=== PATIENT | male | born 1960 | race Caucasian/White ===

== ENCOUNTER 2018-11-20 08:34 | Outpatient (CLI) | payer OTHER ==
--- NOTE | 2018-11-20 11:01 | RAD ---
TWO VIEWS OF THE CHEST: DATE: 11/20/2018. COMPARISON: 10/24/2016. HISTORY: Dyspnea. FINDINGS: Single-lead AICD present, inserted via left subclavian approach. No pneumothorax, pleural fluid, foc al consolidation, or alveolar edema. IMPRESSION: No acute findings. POS: OFF
== END 2018-11-20 08:35 | disposition home or self-care (01) ==
LOC: RAD 08:34
PROVIDERS: ATTEND Internal Medicine Pulmonary Disease
DX: R06.00 Dyspnea, unspecified (principal)
CPT/HCPCS: 71046

== ENCOUNTER 2019-07-23 06:34 | Outpatient (CLI) | payer OTHER ==
--- NOTE | 2019-07-23 08:47 | RAD ---
EXAM: Chest PA and lateral: HISTORY: Preoperative exam. COMPARISON: 11/20/2018 FINDINGS: Left-sided single lead defibrillator with lead positioned over the expected region of the right ventr icle. Heart: Normal cardiac silhouette Aorta: Unremarkable Pulmonary vessels: Normal Costophrenic angles: Costophrenic angles are clear. Lungs: No consolidation or masses. Pneumothorax: No pneumothorax Osseous structures: No osseous abnormalities IMPRESSION: No acute cardiopulmonary process.
[2019-07-23 11:02] LABS: #Basophils 0.1 thou/uL (0.0-0.2); #Eosinphils 0.7 thou/uL (0.0-0.7); #Lymphocytes 3.1 thou/uL (1.20-3.40); #Monocytes 0.7 thou/uL (0.11-0.59); #Neutrophils 5.6 thou/uL (1.40-6.50); %Basophils 0.9 % (0.0-1.0); %Eosinophils 6.6 % (0.0-10.0); %Lymphocytes 30.3 % (21.0-51.0); %Monocytes 7.3 % (0.0-10.0); Hemoglobin 15.8 g/dL (14.0-18.0); Mean Corpuscular HGB CONC 33.2 g/dL (32.0-36.0); Mean Corpuscular Hemoglobin 30.3 pg (27.0-31.0); Mean Corpuscular Volume 91.1 fL (78.0-98.0); Mean Platelet Volume 9.6 fL (7.4-10.4); Platelet Count 209 thou/uL (130-400); RBC Distribution Width 12.3 % (11.5-14.5); Red Blood Cell (RBC) Count 5.24 mill/uL (4.70-6.10); White Blood Cell (WBC) Count 10.2 thou/uL (4.8-10.8)
[2019-07-23 11:08] LABS: INR-International Normal Ratio 0.8; Prothrombin Time 11.4 SEC (12.0-14.7)
[2019-07-23 11:09] LABS: PTT 30.7 SEC (22.9-36.1)
[2019-07-23 11:29] LABS: ALT (SGPT) 11 U/L (8-55); AST (SGOT) 12 U/L (5-34); Albumin 4.4 g/dL (3.5-5.0); Alkaline Phosphatase 75 U/L (40-110); Anion Gap 15 mmol/L (10-20); BUN (Urea Nitrogen) 13 mg/dL (8.4-25.7); Bilirubin, Total 0.5 mg/dL (0.2-1.2); Calc. Creatinine Clearance 0 mL/min (70-130); Calcium 9.8 mg/dL (7.8-10.44); Carbon Dioxide 24 mmol/L (22-29); Chloride 101 mmol/L (98-107); Estimated GFR-MDRD 64; Globulin 2.9 g/dL (2.4-3.5); Glucose 242 mg/dL (70-105); Potassium 4.6 mmol/L (3.5-5.1); Protein, Total 7.3 g/dL (6.0-8.3); Sodium 135 mmol/L (136-145)
[2019-07-23 17:20] LABS: SARS-CoV-2 MS2 Positive; SARS-CoV-2 N Gene Negative; SARS-CoV-2 S Gene Negative; SARS-CoV-2 orf1ab Negative
--- NOTE | 2019-07-28 15:51 | EKG ---
Test Reason : Blood Pressure : / mmHG Vent. Rate : 094 BPM Atrial Rate : 094 BPM P-R Int : 170 ms QRS Dur : 082 ms QT Int : 350 ms P-R-T Axes : 060 -05 -15 degrees QTc Int : 437 ms Normal sinus rhythm Nonspecific T wave abnormality Abnormal ECG When compared with ECG of 01-MAR-2013 11:46, No significant change was found Confirmed by GERONIMO GOMEZ (2) on 07/28/2019 3:50:40 PM Referred By: [email or web address] Confirmed By:GERONIMO GOMEZ
== END 2019-07-23 06:35 | disposition home or self-care (01) ==
LOC: LABBT 06:34
PROVIDERS: ATTEND Internal Medicine Cardiovascular Disease
DX: Z01.818 Encounter for other preprocedural examination (principal); Z11.59 Encounter for screening for other viral diseases; R94.39 Abnormal result of other cardiovascular function study
CPT/HCPCS: 71046; 80053; 85025; 85610; 85730; 87635; 93005; 93010; U0003

== ENCOUNTER 2019-07-24 05:48 | Day surgery (SDC) | payer OTHER ==
[2019-07-23 09:11] VITALS: BMI 39.5
[2019-07-24] MEDS ORDERED: Nitroglycerin 100MG/250ML BOT 250 ML ONE (07:25)
[2019-07-24] MEDS ORDERED: Heparin 10,000 UNITS/1 ML VIAL ONE (07:25)
[2019-07-24] MEDS ORDERED: Verapamil 5 MG/2 ML VIAL ONE (07:25)
[2019-07-24] MEDS ORDERED: Iopamidol 370 76% 100 ML VIAL ONE (10:31)
--- NOTE | 2019-07-25 07:49 | DIS ---
DATE OF ADMISSION: 07/24/2019 DATE OF DISCHARGE: 07/24/2019 INDICATION FOR PROCEDURE: A 59-year-old patient with history of known coronary artery disease and cardiomyopathy, underwent stress testing due to continued shortness of breath or worsening of shortness of breath, who was found to have abnormal stress test with some anterior wall abnormalities. He was advised to undergo cardiac catheterization to evaluate the coronary arteries and also to evaluate the left ventricular systolic function. ADMITTING DIAGNOSES: Include cardiomyopathy, known coronary artery disease, diabetes, hypertension, dyslipidemia, and obesity. DISCHARGE DIAGNOSES: Include cardiomyopathy, known coronary artery disease, diabetes, hypertension, dyslipidemia, and obesity. PROCEDURES IN THE HOSPITAL: Included cardiac catheterization, left ventriculogram, and coronary arteriography using a right radial artery approach. DISCHARGE MEDICATIONS: Include, 1. ProAir HFA aerosol solution two puffs q.6 hours as needed. 2. Albuterol nebulizer solution every 8 hours as needed, that is 2.5 mg per 3 mL. 3. Multivitamins daily. 4. Metformin 1000 mg extended release two tablets twice a day. 5. Lipitor 20 mg daily. 6. Coreg 6.25 mg b.i.d. 7. Aspirin 81 mg a day. 8. Glipizide 5 mg daily. 9. Lasix 40 mg once a day. 10. Entresto 49/51 tablets b.i.d. In the chart, it is listed as once a day, but it should be twice a day. FOLLOWUP: He is to follow up with me in the office in the next 2 to 4 weeks. HOSPITAL COURSE: This very pleasant 59-year-old gentleman, who has a long history of cardiomyopathy. He has undergone AICD implant. He has had a history of mild coronary artery disease. He continued to have shortness of breath. Stress test showed some abnormalities in the anterior wall with a defect, and he was advised to undergo cardiac catheterization to evaluate the coronary artery status. He was taken to the cardiac [facility], where he underwent the procedure today. He was found to have the following, left main was normal. Left anterior descending artery had 60% stenosis in the mid and distal area, the more distally with a 50% stenosis. He also has some ectasia in the left anterior descending artery noted in the mid section. The diagonal branch was approximately 50% to 60% stenosed. The left circumflex had 50% proximal stenosis or plaque formation and then the distal after takeoff after the first obtuse marginal branch had another 50% stenosis in the distal circumflex. The right coronary artery is a large dominant vessel with ectasia, but no flow-limiting disease or stenosis was noted. It was noted that the patient did have some sluggish flow in all coronary arteries. The left ventricular systolic function showed ejection fraction of 30% to 35%. At this time, we will continue medical management of the patient. I have advised him to try to lose weight and continue walking on a daily basis. We will continue his medication. We will adjust as needed. We will continue to follow the patient. If he remains stable, he will be discharged to home within the next 2 to 3 hours. I will see him back in the office in 2 to 4 weeks. Job ID: [id number]
== END 2019-07-24 10:07 | disposition home or self-care (01) ==
LOC: CCL 05:48
PROVIDERS: ATTEND Internal Medicine Cardiovascular Disease
PROC: 4A023N7 Measurement of Cardiac Sampling and Pressure, Left Heart, Percutaneous Approach (ICD-10-PCS; principal; 2019-07-24)
PROC: B2111ZZ Fluoroscopy of Multiple Coronary Arteries using Low Osmolar Contrast (ICD-10-PCS; principal; 2019-07-24)
DX: I25.10 Atherosclerotic heart disease of native coronary artery without angina pectoris (principal); I42.9 Cardiomyopathy, unspecified; I11.0 Hypertensive heart disease with heart failure; I50.22 Chronic systolic (congestive) heart failure; E11.9 Type 2 diabetes mellitus without complications; E78.00 Pure hypercholesterolemia, unspecified; E78.5 Hyperlipidemia, unspecified; E66.9 Obesity, unspecified; J44.9 Chronic obstructive pulmonary disease, unspecified; F17.210 Nicotine dependence, cigarettes, uncomplicated; Z79.84 Long term (current) use of oral hypoglycemic drugs; Z79.899 Other long term (current) drug therapy; Z68.39 Body mass index [BMI] 39.0-39.9, adult; Z95.810 Presence of automatic (implantable) cardiac defibrillator
CPT/HCPCS: 93458; C1769; J1644; Q9967

== ENCOUNTER 2022-01-12 10:53 | Outpatient (CLI) | payer OTHER ==
[2022-01-12 11:37] LABS: Hemoglobin 16.9 g/dL (13.5-17.5); Mean Corpuscular HGB CONC 34.2 g/dL (32.0-36.0); Mean Corpuscular Hemoglobin 30.3 pg (27.0-33.0); Mean Corpuscular Volume 88.5 fl (81.2-95.1); Platelet Count 273 10x3/uL (150-450); RBC Distribution Width 13.2 % (11.5-14.5); Red Blood Cell (RBC) Count 5.58 10x6/uL (4.32-5.72); White Blood Cell (WBC) Count 12.1 10x3/uL (3.5-10.5)
[2022-01-12 11:54] LABS: INR-International Normal Ratio 0.9; PTT 28.2 sec (22.0-33.0); Prothrombin Time 10.3 sec (9.5-12.1)
[2022-01-12 12:07] LABS: ALT (SGPT) 8 U/L (8-55); AST (SGOT) 12 U/L (5-34); Albumin 4.7 g/dL (3.4-4.8); Alkaline Phosphatase 72 U/L (40-110); Anion Gap 18 mmol/L (10-20); BUN (Urea Nitrogen) 26 mg/dL (8.4-25.7); Bilirubin, Direct 0.2 mg/dL (0.1-0.3); Bilirubin, Total 0.5 mg/dL (0.2-1.2); Calc. Creatinine Clearance 0 mL/min (70-130); Calcium 10.2 mg/dL (7.8-10.44); Carbon Dioxide 22 mmol/L (23-31); Chloride 104 mmol/L (98-107); Estimated GFR 62; Glucose 167 mg/dL (80-115); Potassium 5.5 mmol/L (3.5-5.1); Protein, Total 7.7 g/dL (5.8-8.1); Sodium 138 mmol/L (136-145)
== END 2022-01-12 10:54 | disposition home or self-care (01) ==
LOC: LABBT 10:53
PROVIDERS: ATTEND Internal Medicine Cardiovascular Disease
DX: Z01.818 Encounter for other preprocedural examination (principal); I50.9 Heart failure, unspecified; I42.0 Dilated cardiomyopathy; I42.8 Other cardiomyopathies
CPT/HCPCS: 71046; 80048; 80076; 85027; 85610; 85730; 93005; 93010

== ENCOUNTER 2022-01-17 08:40 | Day surgery (SDC) | payer OTHER ==
[2022-01-13 15:00] VITALS: BMI 39.5
[2022-01-17] MEDS ORDERED: Gentamicin 80 MG/50 ML BAG ONE ×2 (13:01→13:02)
[2022-01-17] MEDS ORDERED: Gentamicin 80 MG/2 ML VIAL ONE ×2 (13:01→13:02)
[2022-01-17] MEDS ORDERED: Lidocaine 1% (PF) 30 ML VIAL ONE (13:01)
[2022-01-17] MEDS ORDERED: ceFAZolin 2 GM/Dextrose 50 ML IVPB ONE (13:01)
[2022-01-17] MEDS ORDERED: CEFAZOLIN 2 GM VIAL ONE ×2 (13:10)
[2022-01-17] MEDS ORDERED: CEFAZOLIN 1 GM VIAL ONE (13:16)
[2022-01-17] MEDS ORDERED: SUGAMMADEX SODIUM 200 MG/2 ML VIAL ONE (13:55)
[2022-01-17] MEDS ORDERED: FENTANYL 50 MCG/ML VIAL 50 MCG/ML VIAL ONE ×2 (13:55→13:56)
[2022-01-17] MEDS ORDERED: Midazolam HCl 2 mg/2 ml Vial ONE (13:55)
[2022-01-17] MEDS ORDERED: Propofol 1,000 MG/100 ML VIAL IV ONE (13:56)
[2022-01-17] MEDS ORDERED: Iopamidol 370 76% 100 ML VIAL ONE (14:44)
[2022-01-17] MEDS ORDERED: Iopamidol 370 76% 50 ML VIAL FS ONE (14:44)
== END 2022-01-17 16:20 | disposition home or self-care (01) ==
LOC: SDC 08:40
PROVIDERS: ATTEND Internal Medicine Cardiovascular Disease
PROC: 0JH608Z Insertion of Defibrillator Generator into Chest Subcutaneous Tissue and Fascia, Open Approach (ICD-10-PCS; principal; 2022-01-17)
PROC: 0JPT0PZ Removal of Cardiac Rhythm Related Device from Trunk Subcutaneous Tissue and Fascia, Open Approach (ICD-10-PCS; principal; 2022-01-17)
DX: Z45.02 Encounter for adjustment and management of automatic implantable cardiac defibrillator (principal); I42.8 Other cardiomyopathies; I11.0 Hypertensive heart disease with heart failure; I50.22 Chronic systolic (congestive) heart failure; I49.9 Cardiac arrhythmia, unspecified; M19.90 Unspecified osteoarthritis, unspecified site; F17.210 Nicotine dependence, cigarettes, uncomplicated; G47.30 Sleep apnea, unspecified; J44.9 Chronic obstructive pulmonary disease, unspecified; E11.9 Type 2 diabetes mellitus without complications; I25.10 Atherosclerotic heart disease of native coronary artery without angina pectoris; E66.01 Morbid (severe) obesity due to excess calories; Z68.39 Body mass index [BMI] 39.0-39.9, adult; Z79.84 Long term (current) use of oral hypoglycemic drugs; Z79.899 Other long term (current) drug therapy
CPT/HCPCS: 33262; J0690; J1580; J2001; J2250; J2704; J3010; Q9967

== ENCOUNTER 2022-12-18 16:00 | Outpatient (CLI) | payer OTHER | END 2022-12-18 16:01 | disposition home or self-care (01) | LOC: SLEEPLAB 16:00 | PROVIDERS: ATTEND Physician Assistant | DX: G47.33 Obstructive sleep apnea (adult) (pediatric) (principal); E66.9 Obesity, unspecified; E11.9 Type 2 diabetes mellitus without complications | CPT/HCPCS: 95811 ==